=== PATIENT | female | born 1930 | race Caucasian/White ===

== ENCOUNTER 2017-01-27 15:07 | Emergency (ER) | payer MEDICARE, BC ==
--- NOTE | ~2017-01-27 | EKG ---
PATIENT: CHRISTINA FRANCOIS UNIT #: [id number] Ventricular Rate: 62 BPM Atrial Rate: 62 BPM P-R Interval: 168 ms QRS Duration: 64 ms Q-T Interval: 402 ms QTC Calculation(Bezet): 408 ms P Lund: 112 degrees Calculated R Lund: 36 degrees Calculated T Lund: 25 degrees Diagnosis Line: Sinus rhythm with Premature atrial complexes Diagnosis Line: Otherwise normal ECG Diagnosis Line: When compared with ECG of 06-JAN-2015 10:48, Diagnosis Line: Premature atrial complexes are now Present Diagnosis Line: Confirmed by KELLY WILSON MD ([id number]) on Diagnosis Line: 01/28/2017 5:13:28 PM INTERPRETING MD: TAVO
--- NOTE | ~2017-01-27 | CR71 ---
[facility] A Service of [facility] & [facility] RADIOLOGY TEXT RESULTS PATIENT: CHRISTINA FRANCOIS LOCATION: [facility] : 30 UNIT #: [id number] AGE: [address]: Martínez Anderson MD SEX: F ORDER DR: [id number] [facility] [address] [place], [place] [address] [id number] E MR#: [id number] Acc #: [id number] NAME: CHRISTINA FRANCOIS. : 1930 SEX: F STUDY DATE/TIME: 01/27/2017 18:02 UNIT: [facility] ROOM: STUDY DESCRIPTION: CR Chest Single View Attending Physician: Martínez Anderson M.D. Ordering Physician: Martínez Anderson M.D. Primary Care Physician: Aurelio Kamara M.D. MEDICAL IMAGING REPORT This report is preliminary unless electronic signature is present EXAM AP radiograph of the chest, 01/27/2017 HISTORY Cough, dizziness, nausea today. FINDINGS AP radiograph of the chest is presented. Comparison 01/06/2015. Poor quality study. The patient is in a markedly left anterior oblique projection. Extensive clothing artifacts overlie relevant anatomy. Given obliquity, stable appearance of kyphoscoliosis. No acute appearing bony abnormality. The heart shows stable mild enlargement given obliquity. The thoracic aorta is mildly tortuous. Borderline vascular prominence suggested. Correlate with any clinical indication of mild vascular congestion. As on the prior examination, there is mild prominence of peribronchial markings in the central and lower lung zones. This probably reflects components of chronic bronchitis. There is a band-like area of density at the left lung base laterally adjacent to the diaphragm which probably represents atelectasis. An area of focal left basilar pneumonia could be considered. No pleural effusion. No pneumothorax. No suspicious nodule. Dictated by... Aayush Olivares M.D. THIS IS AN ELECTRONICALLY VERIFIED REPORT Aayush Olivares M.D. at 01/28/2017 6:54 PM [place] TD: 01/28/2017 10:51 JOB #: [id number] [facility] A Service of [facility] & [facility] RADIOLOGY TEXT RESULTS PATIENT: CHRISTINA FRANCOIS LOCATION: [facility] #: [id number] : 30 UNIT #: [id number] AGE: [address]: Martínez Anderson MD SEX: F ORDER DR: MEDICAL IMAGING REPORT Page 1 of 1 COPY
--- NOTE | ~2017-01-27 | CT71 ---
[facility] A Service of [facility] & [facility] RADIOLOGY TEXT RESULTS PATIENT: CHRISTINA FRANCOIS LOCATION: [facility] : 30 UNIT #: [id number] AGE: [address]: Martínez Anderson MD SEX: F ORDER DR: [id number] [facility] [address] [place], [place] [address] [id number] E MR#: [id number] Acc #: [id number] NAME: CHRISTINA FRANCOIS : 1930 SEX: F STUDY DATE/TIME: 01/27/2017 19:20 UNIT: [facility] ROOM: STUDY DESCRIPTION: CT Head Wo Contrast Attending Physician: Martínez Anderson M.D. Ordering Physician: Martínez Anderson M.D. Primary Care Physician: Aurelio Kamara M.D. MEDICAL IMAGING REPORT This report is preliminary unless electronic signature is present EXAM CT brain without contrast HISTORY Dizzy and nausea today. Vertigo. Sinusitis. TECHNIQUE This CT exam was performed with one or more of the following radiation dose reduction techniques: automatic exposure control, adjustment of mA and/or kV according to patient size, and iterative reconstruction. FINDINGS CT brain without contrast demonstrates mild chronic ischemic changes in the deep white matter bilaterally. No intracranial hemorrhage, mass or edema. No midline shift or ventricular dilatation or extraaxial fluid collection. No focal atrophy. IMPRESSION No acute findings. Dictated by... Mani Hernandez M.D. THIS IS AN ELECTRONICALLY VERIFIED REPORT Mani Hernandez M.D. at 01/28/2017 3:51 PM MAIN/precious TD: 01/28/2017 11:19 JOB #: [id number] MEDICAL IMAGING REPORT Page 1 of 1 COPY
[~2017-01-27 15:07] MED LIST: ALLEGRA PO; ALPRAZOLAM0.25 MG PO; AMOXICILLIN PO; ANTIVERT PO; ARTIFICIAL15 ML OPTH OS; ASPIRIN81 M2 PO; AVALIDE 150-12.1 TAB PO; BENICAR PO; BUSPAR15 M1 PO; CALCIUM + D 6001 TA1 PO; CIPRO PO; CLARITIN10 M3 PO; DARVOCET-N 1001 TA1; DARVOCET-N 1001 TAB PO; DISCONTINUED MED; FLAGYL PO; FORTEO2.4 ML SQ; HYDROCODON-ACE1 EAC7 PO; HYDROCODON-ACE1 EAC9 PO; K-LOR HOSPITAL20 ME1 PO; LASIX PO; LASIX20 MG PO; LIPITOR; LIPITOR PO; LIPITOR20 MG PO; LISINOPRIL20 MG PO; LOPRESSOR PO; LOSARTAN POTASS25 MG PO; MELOXICAM15 MG PO; METOPROLOL TAR25 MG; METOPROLOL TAR25 MG PO; METOPROLOL TART25 MG PO; MOBIC; MOBIC PO; MOBIC15 MG PO; NABUMETONE500 M1 PO; NEXIUM; NEXIUM PO; NEXIUM20 MG PO; OTC SINUS; OYSTER CALCIUM500 MG PO; PHENERGAN PO; POTASSIUM CHLO10 ME1 PO; PREMARIN PO; PREVACID PO; STAHIST TA1 TAB.SR . PO; TOPROL XL PO; TRAMADOL HCL50 M1 PO; VITAMIN D250000 UNIT PO; [UNRECOGNIZED DRUG - REMARK] PO
[2017-01-27 16:25] LABS: BASOPHIL# 0.1 X10e3 (0-0.3); BASOPHIL% 0.9 % (0-2.5); EOSINOPHIL# 0.1 X10e3 (0-0.7); EOSINOPHIL% 1.2 % (0.0-7.0); HEMATOCRIT 32.4 % (35.0-45.0); HEMOGLOBIN 10.9 gm/dL (12.0-16.0); LYMPHOCYTE# 1.4 X10e3 (1.0-3.5); LYMPHOCYTE% 18.6 % (17.0-45.0); MEAN CELL VOLUME 91.9 FL (83-96); MEAN CORPUSCULAR HGB CONC 33.7 g/dL (30-36); MEAN PLATELET VOLUME 6.8 FL (6.5-11.5); MONOCYTE% 12.7 % (3.0-12.0); NEUTROPHIL# 5.1 X10e3 (1.5-7.1); NEUTROPHIL% 66.6 % (40-75); PLATELET COUNT 313 X10e3 (140-420); RED BLOOD COUNT 3.53 X10e (3.90-5.30); RED CELL DISTRIBUTION WIDTH 12.8 % (11.0-15.5); WHITE BLOOD COUNT 7.7 X10e3 (4.0-10.5)
[2017-01-27 16:27] LABS: DIFF IND NO
[2017-01-27 17:04] LABS: ALBUMIN SERUM 3.5 g/dL (3.5-5.0); BILIRUBIN, DIRECT 0.1 mg/dL (0.0-0.2); BILIRUBIN,INDIRECT 0.6 mg/dL (0.0-0.9); BILIRUBIN,TOTAL 0.7 mg/dL (0.2-2.0); BUN/CREATININE RATIO 23.33; CALCIUM SERUM 9.2 mg/dL (8.4-10.2); CREATININE SERUM 1.2 mg/dL (0.6-1.4); GLOM FILT RATE Estimated 40.9 mL/min (>60); POTASSIUM 4.5 mmol/L (3.5-5.1); PROTEIN TOTAL SERUM 7.4 g/dL (6.0-8.3)
[2017-01-27 19:33] LABS: URINE SOURCE CLEAN CATCH
[2017-01-27 19:38] LABS: URINE APPEARANCE CLEAR; URINE BILIRUBIN NEG (NEG); URINE BLOOD TRACE (NEG); URINE COLOR YELLOW; URINE GLUCOSE NEG (NEG); URINE KETONE NEG (NEG); URINE LEUKOCYTE ESTERASE 1+ (NEG); URINE NITRATE NEG (NEG); URINE PROTEIN NEG (NEG); URINE SPECIFIC GRAVITY 1.012 (1.003-1.035); URINE UROBILINOGEN 0.2 MG/DL (NEG)
[2017-01-27 19:41] LABS: CULTURE INDICATED? YES; U HYALINE CASTS AUWI 0-2 /[LPF]; URINE BACTERIA AUWI NEG (NEGATIVE); URINE SQUAMOUS EPITHELIAL CELL NONE SEEN /[HPF]
== END 2017-01-27 21:15 | disposition home or self-care (01) ==
LOC: CED 15:07
DX: R42 Dizziness and giddiness (principal); N39.0 Urinary tract infection, site not specified; E78.5 Hyperlipidemia, unspecified; I10 Essential (primary) hypertension; Z88.0 Allergy status to penicillin; Z88.2 Allergy status to sulfonamides
CPT/HCPCS: 36415; 70450; 71010; 80048; 80076; 81003; 85025; 87086; 93005; 99285